=== PATIENT | male | born 1975 | race Caucasian/White ===

== ENCOUNTER 2018-05-10 09:09 | Outpatient (CLI) | payer BC ==
--- NOTE | 2018-05-10 10:51 | RAD ---
EXAM: LEFT ANKLE THREE VIEWS: History: 42-year-old male with history of left ankle pain while playing soccer. FINDINGS: Marked lateral and anterior soft tissue swelling. Hypertrophic osteophytosis changes are noted involv ing the medial tibiotalar joint and the anterior tibiotalar joint with some osteophytosis. These yuan ge could potentially result in some anterior impingement. No acute fracture or dislocation. IMPRESSION: Marked anterior and lateral soft tissue swelling. 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 This c ertainly could result in some anterior impingement. If that is a clinical concern, or if there is nina dence for ankle instability, consider follow up ankle MRI for further assessment. POS: [facility]
== END 2018-05-10 09:10 | disposition home or self-care (01) ==
LOC: BICRAD 09:09
PROVIDERS: ATTEND Family Medicine
DX: M25.572 Pain in left ankle and joints of left foot (principal); M79.89 Other specified soft tissue disorders; M19.072 Primary osteoarthritis, left ankle and foot